=== PATIENT | male | born 1950 | race Caucasian/White ===

== ENCOUNTER 2023-10-19 12:42 | Outpatient (AMB) | payer MEDICARE, OTHER, SELFPAY ==
--- NOTE | 2023-10-19 12:52 | A.OFFVIS_ITS ---
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 Religion Professor Required: No Allergies No Known Allergies Allergy (Verified 10/19/23 12:53) Medication List - Last Reconciled 10/19/23 by Niki Torres MD aspirin 81 mg PO DAILY atorvastatin 10 mg PO DAILY HPI Comments Details: 73y/o Right handed male comes for further management of tremors. He started noticing left thumb tremors about 15 years ago which slowly progressed to involve his left hand. It is intermittent and is usually when he is holding something his hands. The tremors have mildly worsened since then. He has adapted to the tremors and is independent in all his activities of daily living.The tremors are worse when he has to do activities requiring fine motor coordination. His noticed mild head tremors when he bends down.He denies any head injury but he played multiple sports when young . He denies neck injury. He was seen by in 2017 and he had EMG. No voice tremors Memory is good.Gait is good He has occasional back pain. [facility] Medical History (Updated 10/19/23 @ 13:46 by Niki Torres MD) Coarse tremors Cervicalgia HLD (hyperlipidemia) Surgical History History of tonsillectomy and adenoidectomy H/O lateral meniscus repair of right knee Family History Father No problems noted. Mother Diabetes Brother Diabetes Social History Household Members: Spouse Housing: House Alcohol intake: current Alcohol intake frequency: a few times a week Patient Tobacco Use Status: Former Tobacco user Years Smoked: 2-3 years in his teens Physical Exam Vital Signs: Last Vital Signs Pulse 68 10/19/23 12:56 Resp 16 10/19/23 12:56 BP 142/74 H 10/19/23 12:56 BMI result Body Mass Index 29.2 Const General: cooperative, healthy appearing and comfortable Nutritional Appearance: average body habitus Orientation/consciousness: patient oriented x3 Eyes Pupils: Equal, round and reactive pupils present Neuro Other: Normal facial expression and blink No head tremors no voice or tongue tremors Decreased range of motion in the neck left UE postural tremors - moderate amplitude intermittent, mild action tremors General: patient oriented x3, tone normal, moves all extremities and no focal motor deficits Cranial nerves: Yes Facial sensation intact/muscles of mastication intact, Yes Equal, round and reactive pupils present, Yes Bilaterally intact EOM present, Yes Nystagmus not present, Yes Normal facial strength present, Yes Midline tongue present, Yes Symmetric palate elevation present and Yes Ability to bilaterally elevate shoulders present Cognition (Neuro): normal cognition Gait exam (Neuro): Normal gait present Motor exam (neuro): 5/5 motor strength present throughout, Pronator motor funct ion not present and Normal motor muscle tone present throughout Deep tendon reflexes (DTR's): Right triceps reflex intensity grade: 2+, Left triceps reflex intensity grade: 2+, Rt Biceps (C5, C6): 2+, Left biceps reflex intensity grade: 2+, Right brachioradialis reflex intensity grade: 2+, Left brachioradialis reflex intensity grade: 2+, Right patellar reflex intensity grad e: 2+ and Left patellar reflex intensity grade: 2+ Coordination: [id number] test normal Assessment & Plan Assessment & Plan (1) Coarse tremors: Comment: no evidence of parkinsons , left hand tremors and occasional head tremors Code(s): G25.2 - Other specified forms of tremor Category: Medical (2) Cervicalgia: Code(s): M54.2 - Cervicalgia Category: Medical Plan I will evaluate him with MRI brain for asymmetrical postural tremors PT- for neck stretching and myofascial release continue with hand exercises. Orders: Orders PT Evaluation and Treatment Today M54.2 - Cervicalgia MR head/brain wo con Today R25.1 - Tremor, unspecified Coding Level of Care Code New Pt Level 4 (34442) Diagnoses Coarse tremors G25.2 Cervicalgia M54.2
[2023-10-19 12:56] VITALS: BP 142/74; PULSE 68; RESP 16; BMI 29.2
== END 2023-10-19 13:38 | disposition home or self-care (01) ==
PROVIDERS: PCP Internal Medicine; Visit Provider Psychiatry & Neurology Neurology
DX: G25.2 Other specified forms of tremor (principal); M54.2 Cervicalgia
CPT/HCPCS: 99204

== ENCOUNTER → 2023-10-19 12:42 | Outpatient (BNVA) | payer MEDICARE, OTHER, SELFPAY | PROVIDERS: PCP Internal Medicine; Visit Provider Psychiatry & Neurology Neurology | DX: G25.2 Other specified forms of tremor (principal); M54.2 Cervicalgia | CPT/HCPCS: 99202 ==

== ENCOUNTER → 2023-11-17 07:04 | Outpatient (BNV) | payer MEDICARE, OTHER, SELFPAY | PROVIDERS: PCP Internal Medicine; Visit Provider Radiology Diagnostic Radiology | DX: R25.1 Tremor, unspecified (principal) | CPT/HCPCS: 70551 ==

== ENCOUNTER 2023-11-17 07:18 | Outpatient (REF) | payer MEDICARE, OTHER, SELFPAY ==
--- NOTE | ~2023-11-17 | MR_ITS ---
EXAMINATION: MR BRAIN WITHOUT CONTRAST CLINICAL INFORMATION: Tremor, unspecified. 73-year-old male, Left hand tremor x20 years. COMPARISON: None available. TECHNIQUE: MRI of the brain was obtained using routine sequences. Examination performed on 1.5 T Siemens magnet utilizing standard sequences without contrast. FINDINGS: There is no diffusion restriction. There is no intracranial hemorrhage, acute infarction, mass effect, or edema. Ventricles, sulci, and cisterns are normal in size and configuration for patient age. No shift of midline. No abnormal patterns of atrophy. No abnormal hemosiderin deposition is identified. There are a few scattered punctate and minimally confluent foci of white matter T2 hyperintensity in the periventricular, subcortical, and hemispheric deep white matter, nonspecific, but most likely on the basis of small vessel ischemia. Midline structures appear normally formed. The pituitary gland appears normal. Posterior fossa structures appear normal. Cerebellar tonsils are appropriately located. Major flow voids are preserved within the skull base. The globes and orbital contents demonstrate no abnormalities. Paranasal sinuses demonstrate mild mucosal thickening in the maxillary, ethmoid, and frontal sinuses. No air-fluid levels. Nasal septum is mildly right deviated with a small spur. The mastoids and tympanic cavities are normally aerated. Extracranial soft tissues demonstrate no abnormalities. No suspicious bone marrow changes are evident. There are mild degenerative changes in both TM joints. Atlantoaxial joint demonstrates mild to moderate degenerative arthrosis. MR/MR head/brain wo con IMPRESSION: 1. No evidence of intracranial hemorrhage, acute infarction, mass effect, or edema. 2. No abnormal patterns of atrophy or regions of significant encephalomalacia. No imaging findings to explain a chronic left hand tremor. Neurology input recommended. 3. Mild changes of small vessel ischemia. 4. Additional ancillary findings as discussed in the body of the report. Electronically signed by: Osmany Gonzalez MD 11/19/2023 10:37 AM EDT
== END 2023-11-17 07:19 | disposition home or self-care (01) ==
LOC: HO.MRI 07:18
PROVIDERS: PCP Internal Medicine; Visit Provider Psychiatry & Neurology Neurology
DX: R25.1 Tremor, unspecified (principal)
CPT/HCPCS: 70551

== ENCOUNTER 2024-10-11 09:42 | Outpatient (AMB) | payer MEDICARE, OTHER, SELFPAY ==
--- NOTE | 2024-10-11 09:45 | A.OFFVIS_ITS ---
Vital Signs 10/11/24 09:46 Height 6 ft 1 in Weight 227 lb 2 oz BMI 30.0 BP 160/90 H Blood Pressure Location Rt brachial Position Sitting Pulse 81 Pulse Source Pulse Oximeter Pulse Oximetry (%) 98 Oxygen Delivery Method Room Air Intake Visit Reasons: Follow up Essential Tremor Intake Note: Follow up Tremor Tack Puller Required: No Accompanied by: Self / Same As Patient Allergies No Known Allergies Allergy (Verified 10/11/24 09:46) Medication List - Last Reconciled 10/11/24 by Niki Torres MD aspirin 81 mg PO DAILY atorvastatin 10 mg PO DAILY propranolol 10 mg PO BID sildenafil 50 - 100 mg PO HPI Comments Details: 74y/o Right handed male comes for follow up management of tremors.No change in tremors. History from initial visit 10/2023 He started noticing left thumb tremors about 15 years ago which slowly progressed to involve his left hand. It is intermittent and is usually when he is holding something his hands. The tremors have mildly worsened since then. He has adapted to the tremors and is independent in all his activities of daily living.The tremors are worse when he has to do activities requiring fine motor coordination. His noticed mild head tremors when he bends down.He denies any head injury but he played multiple sports when young . He denies neck injury. He was seen by in 2017 and he had EMG. No voice tremors Memory is good.Gait is good He has occasional back pain. [facility] Medical History (Updated 10/19/23 @ 13:46 by Niki Torres MD) Coarse tremors Cervicalgia HLD (hyperlipidemia) Surgical History History of tonsillectomy and adenoidectomy H/O lateral meniscus repair of right knee Family History Father No problems noted. Mother Diabetes Brother Diabetes Social History Household Members: Spouse Housing: House Alcohol intake: current Alcohol intake frequency: a few times a week Patient Tobacco Use Status: Former Tobacco user Years Smoked: 2-3 years in his teens Physical Exam Vital Signs: Last Vital Signs Pulse 81 10/11/24 09:46 BP 160/90 H 10/11/24 09:46 Pulse Ox 98 10/11/24 09:46 Oxygen Delivery Method Room Air 10/11/24 09:46 BMI result Body Mass Index 30.0 Const General: cooperative, healthy appearing and comfortable Nutritional Appearance: average body habitus Orientation/consciousness: patient oriented x3 Eyes Pupils: Equal, round and reactive pupils present Neuro Other: Normal facial expression and blink No head tremors no voice or tongue tremors Decreased range of motion in the neck left UE postural tremors - moderate amplitude intermittent, mild action tremors General: patient oriented x3, tone normal, moves all extremities and no focal motor deficits Cranial nerves: Yes Facial sensation intact/muscles of mastication intact, Yes Equal, round and reactive pupils present, Yes Bilaterally intact EOM present, Yes Nystagmus not present, Yes Normal facial strength present, Yes Midline tongue present, Yes Symmetric palate elevation present and Yes Ability to bilaterally elevate shoulders present Cognition (Neuro): normal cognition Gait exam (Neuro): Normal gait present Motor exam (neuro): 5/5 motor strength present throughout, Pronator motor function not present and Normal motor muscle tone present throughout Coordination: [id number] test normal Assessment & Plan Assessment & Plan (1) Coarse tremors: Comment: no evidence of parkinsons , left hand tremors and occasional head tremors Code(s): G25.2 - Other specified forms of tremor Category: Medical (2) Cervicalgia: Code(s): M54.2 - Cervicalgia Category: Medical Plan MRI reviewed Continue neck exercises I will trial him propranolol 10mg bid continue with hand exercises. Medications: New propranolol 10 mg PO BID 60 tabs 6RF Coding Level of Care Code Est Pt Level 4 (54498) Complex EM visit Add On G2211 Diagnoses Coarse tremors G25.2 Cervicalgia M54.2
[2024-10-11 09:46] VITALS: BP 160/90; PULSE 81; O2SAT 98
--- OUTSIDE RECORDS SUMMARY | 2024-10-11 10:42 | XMS_ITS | Clinical Summary ---
Author Organization [facility] Address [address] [place] [address] Care Team Providers Care Litigation Partner Name Role Phone Libby Merchant MD Primary Care Provider [phone] Allergies No known active allergies Medications aspirin 81 mg EC tablet Take 1 tablet (81 mg total) by mouth 1 (one) time each day. Active atorvastatin (LIPITOR) 10 mg tablet TAKE 1 TABLET BY MOUTH EVERY DAY 90 tablet 1 05/25/19 25 Active sildenafiL (VIAGRA) 100 mg tablet TAKE 1/2-1 TABLET BY MOUTH 30-60 MINUTES PRIOR TO INTERCOURSE *MAX 1 TABLET DAILY* 30 tablet 2 09/21/19 25 Active sildenafiL (VIAGRA) 100 mg tablet TAKE 1/2-1 TABLET BY MOUTH 30-60 MINUTES PRIOR TO INTERCOURSE *MAX 1 TABLET DAILY* 20 tablet 1 07/19/19 25 025 Discontinued Active Problems Problem Noted Date Diagnosed Date COVID-19 01/13/2024 Obesity (BMI 30-39.9) 07/25/2019 Hyperglycemia 03/27/2015 Pure hypercholesterolemia 04/23/2009 Tremor 09/27/2006 Overview (01/13/2024): see neurology note 05/31/06 Essential and other specified forms of tremor Immunizations Name Administration Dates Next Due COVID-19 (Pfizer/Comirnaty) 12yo and older 11/06/2022 Influenza Quadravalent, MDCK , 0.5ml, preservative free (Flucelvax) 6mo and older 02/18/2018 Influenza trivalent, 0.5mL ( Fluad) 65yo and older 10/21/2023,11/08/2016,11/28/2015 Influenza trivalent, 0.5mL, preservative free (Fluarix; FluLaval; Fluzone) ages 6mo and older (Afluria) 3 years and older 10/22/2022,11/14/2014,11/30/2013,02/17,11/20/2011,12/01/2010,10/30/2009 Influenza, Unspecified 10/28/2021,10/21/2020 Pfizer SARS-CoV-2 COVID-19, mRNA, LNP-S, preservative free 11/08/2020 Pneumococcal conjugate 13 va lent (Prevnar 13, PCV13) 2mo and older 12/12/2014 Pneumococcal polysaccharide 23 valent (Pneumovax 23) 2yo and older 04/14/2017 Td Tetanus diptheria (Tdvax) 7yo and older 10/16/2002 Tdap Tetanus diptheria acell ular pertussis (Boostrix; Adacel) 7yo and older 12/04/2023,02/12/2012 Zoster Live 12/04/2023,10/22/2011 Zoster recombinant (Shingrix ) 19yo and older 06/02/2024 Surgical History Surgery Date Site/Laterality Comments COLONOSCOPY 2002 PROCEDURE: AR COLONOSCOPY FLX DX W/COLLJ SPEC WHEN PFRMD; COMMENT: negative COLONOSCOPY W/ BIOPSIES 2013 PROCEDURE: AR COLONOSCOPY W/BIOPSY SINGLE/MULTIPLE; COMMENT: 5 mm rectal polyp: hyperplastic Medical History Medical History Date Comments Umbilical hernia without men tion of obstruction or gangrene DX:Umbilical hernia without mention of obstruction or gangrene Essential and other specifie d forms of tremor 09/27/2006 DX:Essential and other speci fied forms of tremor; COMMENT: see neurology note 05/31/06 Pure hypercholesterolemia DX:Pur e hypercholesterolemia Hyperglycemia 03/27/2015 DX:Hyperglycemia Covid-19 DX:COVID-19 Family History Medical History Relation Name Comments Heart attack Father around age 68, at age 92 Other: CAD, no details Mother MDs c annot plce stents, from lung Cancer at age 88 Other: lung cancer, never biopsied Mother smoker Other cancer Uncle ? colon ca Relation Name Status Comments Father Mother Uncle Social History Tobacco Use Types Packs/Day Years Used Date Smoking Tobacco: Never Smokeless Tobacco: Never Alcohol Use Standard Drinks/Week Comments No 0 (1 standard drink = 0.6 oz pur e alcohol) Sex and Gender Information Value Date Recorded Sex Assigned at Not on file Legal Sex Male 10:48 AM EST Gender Identity Not on file Sexual Orientation Not on file Obstetrics History Last Filed Vital Signs Vital Sign Reading Time Taken Comments Blood Pressure 142/82 04/05/2024 10:17 AM EST Pulse 88 04/05/2024 10:17 AM EST Temperature 35.9 C (96.6 F) 04/05/2024 10:17 AM EST Respiratory Rate 20 04/05/2024 10:17 AM EST Oxygen Saturation - - Inhaled Oxygen Concentration - - Weight 102 kg (224 lb) 04/05/2024 10:17 AM EST Height 185.4 cm (6' 1 ) 04/05/2024 10:17 AM EST Body Mass Index 29.55 04/05/2024 10:17 AM EST Plan of Treatment Upcoming Encounters Date Type Department Care Team (Late st Contact Info) Description 10/25/2024 11:00 AM EDT Office Visit Adult Medicine [facility] [address] [place] [address] Libby Merchant MD [address] [place] [address] Health Maintenance Due Date Last Done Comments Social Influencers of Health Screening 01/17/2022 Depression Screening 02/09/2024 11/04/2023 Zoster Vaccines (3 of 3) 07/28/202406/02/2 025, 12/04/2023, 10/22/2011 COVID-19 Vaccine ( season) 2024 11/06/2022, 12/03/2021, 06/25/2021, Additional history exists Influenza Vaccine (#1) 2024 , 10/22/2022, 11/03/2021, Additional history exists Falls Risk Assessment 11/03/2024 11/04/2023 Medicare Annual Wellness Visit 11/03/2024 11/04/2023 Cholesterol Screening (Lipid Panel) 06/27/2028 06/28/2023, 06/28/2023 Colorectal Cancer Screening: Colonoscopy 11/07/2028 11/08/2023 DTaP,Tdap,and Td Vaccines (4 - Td or Tdap) 12/03/2033 12/04/2023, 02/12/2012, 10/16/2002 Hepatitis C Screening Completed 05/23/2015 Pneumococcal Vaccine: 50+ Years Completed 04/14/2017, 12/12/2014 RSV Immunization Adult Patients Completed 10/03/2022 HIB Vaccines Aged Out No longer eligi ble based on patient's age to complete this topic HPV Vaccines Aged Out No longer eligi ble based on patient's age to complete this topic Hepatitis A Vaccines Aged Out No long er eligible based on patient's age to complete this topic Hepatitis B Vaccines Aged Out No long er eligible based on patient's age to complete this topic IPV Vaccines Aged Out No longer eligi ble based on patient's age to complete this topic MMR Vaccines Aged Out No longer eligi ble based on patient's age to complete this topic Meningococcal ACWY Vaccine Aged Out N o longer eligible based on patient's age to complete this topic Meningococcal B Vaccine Aged Out No l onger eligible based on patient's age to complete this topic RSV Immunization Patients Under 20 months Aged Out No longer eligible based on patient's age to complete this topic Varicella Vaccines Aged Out No longer eligible based on patient's age to complete this topic Procedures Procedure Name Priority Date/Time Associated Diagnosis Comments COLONOSCOPY Routine 11/08/2023 DEPRESSION SCREENING Routine 11/04/2023 FALLS RISK ASSESSMENT Routine 11/04/2023 LIPID PANEL Routine 06/28/2023 HEPATITIS C SCREENING Routine 05/23/2015 from Last 3 Months or Most Recently Relevant to Health Maintenance Results * Colonoscopy (11/08/2023) Colonoscopy Abstracted. No Interpretation Anatomical Region Laterality Modality Other Historical Provider MD HEALTH MAINTENANCE Final Result * Falls Risk Assessment (11/04/2023) Pathologist [facility] Falls Risk Assessment Abstracted [facility] Provider HEALTH MAINTENANCE Final Result * Depression Screening (11/04/2023) Pathologist [facility] Depression Screening Abstracted [facility] Provider HEALTH MAINTENANCE Final Result * Lipid panel (06/28/2023) [facility] LDL/HDL Ratio 3 0 - 4 Triglycerides 102 0 - 150 mg/dL Cholesterol 157 0 - 200 mg/dL HDL 62 >=40 mg/dL LDL Cholesterol 75 0 - 100 mg/dL Blood Venous blood specimen / Unknown Result [facility] Provider LAB BLOOD ORDERABLES Melyssa l Result * Hepatitis C Screening (05/23/2015) Pathologist [facility] Hepatitis C Screening Abstracted [facility] Provider HEALTH MAINTENANCE Final Result from Last 3 Months or Most Recently Relevant to Health Maintenance Insurance [facility] [facility] [place] [id number] Care Teams Litigation Partner Relationship Specialty Start Date End Date Libby Merchant MD [address] [place] [address] PCP - General 12/17/1998
--- OUTSIDE RECORDS SUMMARY | 2024-10-11 10:42 | XMS_ITS ---
Author Name [facility] Organization Unknown Care Team Organization Name Specialty Phone Email Start Date End Da te [facility] 09/27/[address] [facility] 12/16/2021 09/27/2023
== END 2024-10-11 10:29 | disposition home or self-care (01) ==
LOC: HO.HSMS 09:43
PROVIDERS: PCP Internal Medicine; Visit Provider Psychiatry & Neurology Neurology
DX: G25.2 Other specified forms of tremor (principal); M54.2 Cervicalgia
CPT/HCPCS: 99214; G2211

== ENCOUNTER → 2024-10-11 09:42 | Outpatient (BNVA) | payer MEDICARE, OTHER, SELFPAY | PROVIDERS: PCP Internal Medicine; Visit Provider Psychiatry & Neurology Neurology | DX: M54.2 Cervicalgia (principal); G25.2 Other specified forms of tremor | CPT/HCPCS: 99212 ==